=== PATIENT | male | born 1950 | race Caucasian/White ===

== ENCOUNTER 2017-12-05 16:08 | Emergency (ER) | payer OTHER ==
[~2017-12-05] VITALS: Ht 170.2 cm; Wt 95.3 kg
[2017-12-05 16:13] VITALS: BP 164/90
--- NOTE | 2017-12-05 16:49 | ED NECK/BACK PAIN COMPLAINT ---
History of Present Illness General Chief Complaint: General Adult Stated Complaint: "I NEED PAIN MEDS" Source: patient Exam Limitations: no limitations Vital Signs & Intake/Output Vital Signs & Intake/Output Vital Signs Date Time Temp Pulse Resp B/P B/P Pulse O2 O2 Flow FiO2 Mean Ox Delivery Rate 12/05 1613 97.6 65 18 164/90 99 Room Air Allergies Coded Allergies: No Known Allergies (12/05/17) Reconcile Medications Cyclobenzaprine HCl 10 MG TABLET 1 TAB PO TID spasms Methylprednisolone. (Medrol) 4 MG TAB.DS.PK 1 DP PO AD scaitica 6 on day 1 then reduce by one tablet daily until gone Oxycodone HCl/Acetaminophen (Percocet 5-325 MG Tablet) 5 MG-325 MG TABLET 1-2 TAB PO BID pain Triage Note: PT STATES HE IS HAVING PAIN IN HIS SCIATIC. PT STATES HE HAS HAD THIS BEFORE ABOUT 20 MINUTES AGO. PT STATES THE PAIN BEGAN 2 DAYS AGO BUT TODAY IT WAS WORSE. PT STATES HE TOOK ONE MOTRIN TODAY WITH NO RELIEF Triage Nurses Notes Reviewed? yes Onset: Abrupt Duration: day(s): Timing: recent history Quality/Severity: moderate Loss of Consciousness: no loss of consciousness HPI: 67-year-old male comes into the emergency room for further evaluation of left lower back pain wrapping down his left leg. Pain is sharp. Shooting. Worse with movement. He's had this before but not this severe. Nothing seems to make the symptoms better. No relief with ibuprofen. (Leo Ruggiero) Past History Travel History Traveled to [place] past 21 day No Medical History Any Pertinent Medical History? see below for history Cardiovascular: hypertension Surgical History Surgical History: non-contributory Psychosocial History What is your primary language Azeri Tobacco Use: Never used ETOH Use: denies use Illicit Drug Use: denies illicit drug use Family History Hx Contributory? No (Leo Ruggiero) Review of Systems Review of Systems Constitutional: Reports: no symptoms. Eyes: Reports: no symptoms. Ears, Nose, Throat, Mouth: Reports: no symptoms. Respiratory: Reports: no symptoms. Cardiovascular: Reports: no symptoms. Gastrointestinal/Abdominal: Reports: no symptoms. Musculoskeletal: Reports: see HPI. Skin: Reports: no symptoms. Neurological/Psychological: Reports: no symptoms. All Other Systems: Reviewed and Negative (Leo Ruggiero) Physical Exam Physical Exam General Appearance: well developed/nourished, mild distress Head: atraumatic Eyes: Bilateral: normal appearance. Ears, Nose, Throat, Mouth: hearing grossly normal Neck: normal inspection Respiratory: normal breath sounds, no respiratory distress Back: normal inspection, TEDNERNESS LEFT LOWER BACK Extremities: normal range of motion Motor: Deficit L4 Right: No Deficit L4 Left: No Deficit L5 Right: No Deficit L5 Left: No Deficit S1 Right: No Deficit S1 Right: No Neurologic/Psych: awake, alert, oriented x 3, normal mood/affect Skin: intact, normal color, warm/dry Core Measures CVA/TIA Diagnosis: No (Elliott HERNANDEZ,Leo) Progress Differential Diagnosis: cauda equina syn, herniated disc, myofascial strain, pyelo/UTI, sciatica, spinal cord inj, thoracic outlet syn Plan of Care: Orders Procedure Date/time Status XRY-LUMBOSACRAL SPINE 4 VIEWS 12/05 1612 Active Diagnostic Imaging: Viewed by Me: Radiology Read. Discussed w/RAD: Radiology Read. Radiology Impression: PATIENT: SHIRAZ LLOYD JR PRESENT AGE: 67 PATIENT ACCOUNT NO: [id number] : 49 LOCATION: [facility] ORDERING PHYSICIAN: Leo HERNANDEZ SERVICE DATE: 12/05/17 EXAM TYPE : RAD - XRY-LUMBOSACRAL SPINE 4 VIEWS EXAMINATION: XR LUMBOSACRAL SPINE CLINICAL INFORMATION: Low-back pain. COMPARISON: None. TECHNIQUE: 4 views of the lumbosacral spine were obtained. FINDINGS: Mild rightward curvature of the thoracolumbar junction. On the lateral projection, there is mild retrolisthesis of L3 on L4. Moderate disc degenerative changes at L3-L4. Mild disc degenerative changes at L4-L5, L2-L3. Mild endplate degenerative changes otherwise. Vertebral body heights are maintained. No evidence of acute fracture. Multilevel facet degeneration. Left lateral endplate spurring at L1-L2. SI joints intact. There are surgical clips projected over the symphysis. SI joints are intact. IMPRESSION: 1. No radiographic evidence of acute fracture. 2. Multilevel disc degenerative changes in the lumbar spine, as detailed above. DICTATED BY: Addi Adame MD DATE/TIME DICTATED:12/05/171704 PAIL BAILER:CHRISTIANO DATE/ TIME TRANSCRIBED:12/05/17 / 1701 CONFIDENTIAL, DO NOT COPY WITHOUT APPROPRIATE AUTHORIZATION. <Electronically signed in Other Vendor System> SIGNED BY: Addi Adame MD 12/05/17 3398 (Leo Ruggiero) Departure Departure Disposition: HOME OR SELF CARE Condition: Stable Clinical Impression Primary Impression: Sciatica of left side Referrals: Unknown (PCP/Family) Additional Instructions: Take Percocet Flexeril and Medrol Dosepak as prescribed. Follow-up with primary care doctor. Return if any concerns worsening symptoms. Please go over all results of today's visit with your primary care doctor. Contact your primary care doctor to let them know you were here in the emergency room. There may be nonspecific findings which may not be related to your visit today here in the emergency room but may require further evaluation and chronic monitoring by your primary care doctor. If you had a laceration today the chance of foreign body always remains. You should follow-up with your primary care doctor for recheck in 3-5 days for a wound check. If you had an x-ray done there is a chance that a fracture could have been missed on initial read and you should follow-up with your primary care doctor for repeat x-rays if symptoms persist. If your blood pressure was elevated here in the emergency room please have rechecked by [facility] primary care doctor within the next 48. If you were prescribed a narcotic here in the emergency room or any type of controlled substances you're not allowed to drive while taking this medication or operate any type of heavy machinery. Narcotics can make you feel lightheaded dizziness nausea and can cause constipation. You may need to coal picker a stool softener. Thank you for choosing [facility] emergency room. Please return to the emergency room immediately if you have any other concerns worsening of symptoms. Departure Forms: Customer Survey General Discharge Information Prescriptions: Current Visit Scripts Oxycodone HCl/Acetaminophen (Percocet 5-325 MG Tablet) 1-2 TAB PO BID #10 TAB Cyclobenzaprine HCl 1 TAB PO TID #30 TAB Methylprednisolone. (Medrol) 1 DP PO AD #1 DP 6 on day 1 then reduce by one tablet daily until gone Comments 12/05/2017 5:54:02 PM Patient clinically looks well. Patient is no apparent distress. Nontoxic- appearing. No motor deficits. Symptoms are most consistent with sciatica and lumbar radiculopathy. Patient's pain improved after Percocet. Follow-up with PCP. Return if any other concerns. (Elliott HERNANDEZ,Leo) PA/INSTRUCTOR PHYSICAL Co-Sign Statement Statement: ED Attending supervision documentation- [] I saw and evaluated the patient. I have also reviewed all the pertinent lab results and diagnostic results. I agree with the findings and the plan of care as documented in the PA's/INSTRUCTOR PHYSICAL's documentation. [X] I have reviewed the ED Record and agree with the PA's/INSTRUCTOR PHYSICAL's documentation. [] Additions or exceptions (if any) to the PAs/INSTRUCTOR PHYSICAL's note and plan are summarized below: [] (Briana LOPEZ,Ron Montenegro)
--- NOTE | 2017-12-05 17:39 | RADIOLOGY REPORT ---
EXAMINATION: XR LUMBOSACRAL SPINE CLINICAL INFORMATION: Low-back pain. COMPARISON: None. TECHNIQUE: 4 views of the lumbosacral spine were obtained. FINDINGS: Mild rightward curvature of the thoracolumbar junction. On the lateral projection, there is mild retrolisthesis of L3 on L4. Moderate disc degenerative changes at L3-L4. Mild disc degenerative changes at L4-L5, L2-L3. Mild endplate degenerative changes otherwise. Vertebral body heights are maintained. No evidence of acute fracture. Multilevel facet degeneration. Left lateral endplate spurring at L1-L2. SI joints intact. There are surgical clips projected over the symphysis. SI joints are intact. IMPRESSION: 1. No radiographic evidence of acute fracture. 2. Multilevel disc degenerative changes in the lumbar spine, as detailed above.
[2017-12-05] MEDS ORDERED: CYCLOBENZAPRINE10 M1 PO (17:48)
[2017-12-05] MEDS ORDERED: PERCOCET 5-3251 EACH PO (17:48)
[2017-12-05] MEDS ORDERED: MEDROL4 M2 PO (17:48)
== END 2017-12-05 18:03 ==
LOC: ERH 16:08
DX: M54.42 Lumbago with sciatica, left side (principal)
CPT/HCPCS: 72110